=== PATIENT | female | born 1970 | race Caucasian/White ===

== ENCOUNTER 2017-03-30 08:30 | Day surgery (SDC) | payer OTHER ==
[~2017-03-30] VITALS: Ht 160 cm; Wt 66.0 kg
[~2017-03-30 08:30] MED LIST: ANAS1 PO; LEVSOD75; LIOTHYRONINE S; OMEP20ER
[2017-03-30] MEDS ORDERED: ASPI81CH PO (09:04)
[2017-03-30 09:06] LABS: International Normalized Ratio 0.98; Prothrombin Time Results 10.2 Sec (9.7-11.5)
== END 2017-03-30 22:51 | disposition home or self-care (01) ==
LOC: MHTC 08:30
PROVIDERS: Internal Medicine Interventional Cardiology
PROC: 3E033TZ Introduction of Destructive Agent into Peripheral Vein, Percutaneous Approach (ICD-10-PCS; principal; 2017-03-30)
DX: I87.2 Venous insufficiency (chronic) (peripheral) (principal); E03.9 Hypothyroidism, unspecified; K21.9 Gastro-esophageal reflux disease without esophagitis; E55.9 Vitamin D deficiency, unspecified; Z79.899 Other long term (current) drug therapy; Z79.82 Long term (current) use of aspirin; Z85.3 Personal history of malignant neoplasm of breast
CPT/HCPCS: 36415; 36466; 36470; 36471; 85610

== ENCOUNTER → 2018-06-13 | Outpatient (CLI) | payer OTHER ==
[~2018-06-13] MED LIST changes: +ASPI81CH PO
== END | disposition home or self-care (01) ==
LOC: LAB SHORT 08:16 → PLD 08:16
DX: D48.5 Neoplasm of uncertain behavior of skin (principal)
CPT/HCPCS: 88305

== ENCOUNTER 2020-08-26 09:58 | Day surgery (SDC) | payer OTHER ==
[~2020-08-26] VITALS: Ht 160 cm; Wt 65.1 kg
[~2020-08-26 09:58] MED LIST changes: +LEVSOD75 PO; +LIOT5 PO; +Magnesium30 MG PO; +VITAMIN D325 MC3 PO
== END 2020-08-26 12:20 | disposition home or self-care (01) ==
LOC: ORSCSDS 09:58
PROVIDERS: Internal Medicine Gastroenterology
PROC: 0DBH8ZX Excision of Cecum, Via Natural or Artificial Opening Endoscopic, Diagnostic (ICD-10-PCS; principal; 2020-08-26 11:15)
PROC: 0DBM8ZX Excision of Descending Colon, Via Natural or Artificial Opening Endoscopic, Diagnostic (ICD-10-PCS; principal; 2020-08-26 11:15)
DX: Z12.11 Encounter for screening for malignant neoplasm of colon (principal); D12.0 Benign neoplasm of cecum; D12.4 Benign neoplasm of descending colon; Z86.010 Personal history of colon polyps; Z79.899 Other long term (current) drug therapy
CPT/HCPCS: 88305; J2704; J7120

== ENCOUNTER → 2022-09-22 | Outpatient (CLI) | payer OTHER | LOC: PLD 11:52 → LAB SHORT 11:52 | DX: L73.8 Other specified follicular disorders (principal) | CPT/HCPCS: 88305 ==